=== PATIENT | female | born 1945 | race Caucasian/White ===

== ENCOUNTER → 2016-09-22 | Outpatient (CLI) | payer OTHER, MEDICARE ==
[~2016-09-22] VITALS: Ht 165.1 cm; Wt 65.9 kg
[~2016-09-22] MED LIST: ATIVAN0.5 MG PO; LEVO-T75 MCG PO; PAXIL40 MG PO; VITAMIN D400 UNI1 PO
[2016-09-22 09:57] VITALS: BP 122/67
== END | disposition home or self-care (01) ==
LOC: IVINF 09-15 15:00
DX: M81.0 Age-related osteoporosis without current pathological fracture (principal)
CPT/HCPCS: 96365; J3010; J3489

== ENCOUNTER → 2016-10-22 | Outpatient (CLI) | payer OTHER, MEDICARE ==
[~2016-10-22] VITALS: Ht 170.2 cm; Wt 61.2 kg
== END | disposition home or self-care (01) ==
LOC: AMB 10-11 07:00 → OPR 10-11 08:30 → AMB 09:36
PROC: 0DBK8ZX Excision of Ascending Colon, Via Natural or Artificial Opening Endoscopic, Diagnostic (ICD-10-PCS; principal; 2016-10-22)
DX: K63.5 Polyp of colon (principal); K57.30 Diverticulosis of large intestine without perforation or abscess without bleeding; K64.8 Other hemorrhoids; K59.00 Constipation, unspecified; R19.4 Change in bowel habit; M81.0 Age-related osteoporosis without current pathological fracture; R32 Unspecified urinary incontinence; Z80.1 Family history of malignant neoplasm of trachea, bronchus and lung; Z82.3 Family history of stroke
CPT/HCPCS: 88305; J2250

== ENCOUNTER 2017-04-17 12:15 | Emergency (ER) | payer OTHER, MEDICARE ==
[~2017-04-17] VITALS: Ht 170.2 cm; Wt 63.5 kg
[2017-04-17 14:24] LABS: HEMATOCRIT 37.7 % (36.0-46.0); HEMOGLOBIN 12.4 G/DL (11.9-15.5); MCH 28.1 PG (29.0-34.0); MCHC 32.9 G/DL (30.0-36.0); MCV 85.5 FL (83-99); PLATELET COUNT 239 K/uL (156-360); RBC DIS.WIDTH-CV 13.8 % (11.8-14.6); RBC DIS.WIDTH-SD 43.3 % (39-53); RED BLOOD COUNT 4.41 M/uL (3.80-5.20); WHITE BLOOD COUNT 9.1 K/uL (4.1-10.2)
[2017-04-17 14:33] LABS: CHLORIDE 107 mEq/L (99-109); POTASSIUM 3.8 mEq/L (3.7-5.4); SODIUM 139 mEq/L (136-147)
[2017-04-17 14:35] LABS: GLUCOSE 106 mg/dL (70-99)
[2017-04-17 14:38] LABS: CREATININE 0.7 mg/dL (0.6-1.3); GFR ESTIMATE (CALCULATED) > 59 mL/min/
[2017-04-17 14:39] LABS: UREA NITROGEN (BUN) 14 mg/dL (9-23)
[2017-04-17 14:45] LABS: TROP-I INTERPRETATION NEGATIVE; TROPONIN-I < 0.01 ng/mL (0.0-0.30)
[2017-04-17] MEDS ORDERED: PROVENTIL,2.5 MG/3 M IH (16:51)
[2017-04-17] MEDS ORDERED: PREDNISONE20 MG PO (16:51)
[2017-04-17] MEDS ORDERED: HYCODAN SYRUP480 ML PO (16:54)
[2017-04-17 17:43] VITALS: BP 124/64
== END 2017-04-17 17:44 | disposition home or self-care (01) ==
LOC: EME 12:15
DX: J40 Bronchitis, not specified as acute or chronic (principal); F32.9 Major depressive disorder, single episode, unspecified; F41.9 Anxiety disorder, unspecified
CPT/HCPCS: 71046; 80048; 84484; 85027; 93005; 94640; 99281; 99285; J7512